=== PATIENT | male | born 1990 | race Caucasian/White ===

== ENCOUNTER 2018-02-28 08:16 | Day surgery (SDC) | payer OTHER ==
[2018-02-28 09:15] VITALS: O2SAT 100
--- NOTE | 2018-02-28 10:58 | CP.SDSHP ---
Same Day Surgery H & P - History Proposed Procedure: colonoscopy Pre-Op Diagnosis: rectal bleeding - Allergies Allergies: Allergies mold Allergy (Verified 02/27/18 11:55) CONGESTION wheat Allergy (Verified 02/28/18 09:07) DIARRHEA PATIENT STATES ALL ALLERGIES ARE FROM TESTING, HE HAS NO SYMPTOMS ALMONDS Allergy (Uncoded 02/27/18 11:55) DIARRHEA DAIRY Allergy (Uncoded 02/27/18 11:55) DIARRHEA DUST Allergy (Uncoded 02/27/18 11:55) CONGESTION - Physical Exam General Appearance: NAD Vital Signs: Vital Signs 02/28/18 08:30 Temperature 99.3 F Pulse Rate 104 H Respiratory 20 Rate Blood Pressure 125/75 O2 Sat by Pulse 100 Oximetry Mental Status: Alert & Oriented x3 Neuro: WNL Heart: WNL Lungs: WNL GI: WNL - {Optional Preform as Required} Abdomen: WNL - Impression Pt. Evaluated Today:Candidate for Anesthesia & Procedure: Yes - Date & Time Date: 02/28/18 Time: 10:57 Short Stay Discharge - Short Stay Discharge Admitting Diagnosis/Reason for Visit: RECTAL BLEEDING Disposition: HOME/ ROUTINE
[2018-02-28] MEDS ORDERED: Propofol 10 mg/ml Inj (20 ML) ONE (11:25)
[2018-02-28] MEDS ORDERED: Lactated Ringer's 1,000 ML IV ONE ×2 (11:30)
[2018-02-28 12:11] VITALS: TEMP 97.8
[2018-02-28 12:51] VITALS: BP 120/73; PULSE 102; RESP 18
== END 2018-02-28 12:45 | disposition home or self-care (01) ==
LOC: C.ENDO 08:16
PROVIDERS: ATTEND Internal Medicine Gastroenterology
DX: K62.5 Hemorrhage of anus and rectum (principal); K64.1 Second degree hemorrhoids
CPT/HCPCS: 45378; J2704; J3010; J7120